=== PATIENT | male | born 1990 | race Two or more races ===

== ENCOUNTER 2019-11-05 11:14 | Emergency (ER) | payer SELFPAY ==
[2019-11-05] MEDS ORDERED: HYDROCORTISONE 1% CREAM 28.35 GM TP ONE (11:29)
[2019-11-05 11:33] VITALS: BP 128/84
--- NOTE | 2019-11-05 11:35 | ER Document Report ---
HPI - HPI Patient complains to provider of: eczema Time Seen by Provider: 11/05/19 11:29 Onset: Other Onset/Duration: Gradual - 2 weeks Quality of pain: Burning Pain Level: 1 Context: 28-year-old male presented to ED for complaint of eczema bilateral axilla and back of his neck. He states that whenever he showers and hot water he gets much worse. He states it has been draining some. He states he has been putting antibiotic ointment on it and it looks like it is draining worse and he thought maybe it had become infected. He is alert oriented respirations regular nonlabored speaking in full sentences. Associated Symptoms: Other - Eczema Exacerbated by: Other - Heat or hot showers Relieved by: Denies Similar symptoms previously: Yes Recently seen / treated by doctor: No Past Medical History - General Information source: Patient - Social History Smoking Status: Former Smoker Frequency of alcohol use: None Drug Abuse: None Family History: Reviewed & Not Pertinent Patient has homicidal ideation: No - Past Medical History Cardiac Medical History: Reports: None Pulmonary Medical History: Reports: None EENT Medical History: Reports: None Neurological Medical History: Reports: None Endocrine Medical History: Reports: None Renal/ Medical History: Reports: None Malignancy Medical History: Reports None GI Medical History: Reports: None Musculoskeletal Medical History: Reports None Skin Medical History: Reports Hx Eczema Psychiatric Medical History: Reports: None Traumatic Medical History: Reports: None Infectious Medical History: Reports: None Surgical Hx: Negative Past Surgical History: Reports: None - Immunizations Immunizations up to date: Yes Hx Diphtheria, Pertussis, Tetanus Vaccination: Yes Vertical Provider Document - CONSTITUTIONAL Agree With Documented VS: Yes Exam Limitations: No Limitations - INFECTION CONTROL TRAVEL OUTSIDE OF THE [place] IN LAST 30 DAYS: Yes - HEENT HEENT: Atraumatic, Normal ENT Exam, Normocephalic - NECK Neck: Normal Inspection - RESPIRATORY Respiratory: Breath Sounds Normal, No Respiratory Distress, Chest Non-Tender - CARDIOVASCULAR Cardiovascular: Regular Rate, Regular Rhythm - GI/ABDOMEN Gastrointestinal: Abdomen Soft, Abdomen Non-Tender - MUSCULOSKELETAL/EXTREMETIES Musculoskeletal/Extremeties: MAEW, FROM, Non-Tender - NEURO Level of Consciousness: Awake, Alert, Appropriate Motor/Sensory: No Motor Deficit, No Sensory Deficit - DERM Integumentary: Warm, Dry, Rash - Eczema bilateral axilla and neck Discharge - Discharge Clinical Impression: Eczema Qualifiers: Eczema type: unspecified Qualified Code(s): L30.9 - Dermatitis, unspecified Condition: Stable Disposition: HOME, SELF-CARE Additional Instructions: Atopic Dematitis (Eczema) You have atopic dermatitis, commonly called eczema. This is a chronic allergic skin condition. It often occurs in families with asthma and hay fever. The skin develops patches of redness, itching and scaling. Eczema often affects the back of the neck, back of the legs, and front of the arms. In children it affects the back of the knees, front of the elbows, and the cheeks. Itching is the main symptom. Eczema can be triggered by dryness, heat, sweating, and detergents or soap. Scratching makes the rash worse. Food or skin allergy can cause eczema. Emotional stress may also be a factor. Symptoms may ge t better or worse spontaneously. Generally, the treatment consists of: (1) avoid hot-water baths, (2) avoid using soap on your skin, (3) apply a cortisone cream as needed, and (4) use antihistamines for itching. For severe episodes, oral cortisone medication may be required. Call the doctor if you get worse despite treatment, or if signs of infection occur -- such as spreading redness, red streaks, swollen glands, swelling, or fever. Try Eucerin cream mixed with vitamin E oil 2-3 times a day after using the steroid cream for the next 3 to 4 days. Use the steroid cream twice a day after cleaning the area and patting dry. Do not use warm water or warm or hot showers. To stay as cool as possible until this is improved. When bathing will actually make this much worse. Prescriptions: Pimecrolimus 1 applic TOP BID 7 Days #1 tube Forms: Elevated Blood Pressure Referrals: MELLISSA CAIN MD [ACTIVE STAFF] - Follow up as needed JOSE PRITCHARD MD [ACTIVE STAFF] - Follow up as needed [facility] [Provider Group] - Follow up as needed [facility] [Provider Group] - Follow up as needed [facility] [Provider Group] - Follow up as needed
== END 2019-11-05 11:43 | disposition home or self-care (01) ==
LOC: ER 11:14
DX: L30.9 Dermatitis, unspecified (principal); Z87.891 Personal history of nicotine dependence
CPT/HCPCS: 99283; J3490